=== PATIENT | male | born 1930 | race Caucasian/White ===

== ENCOUNTER 2018-04-21 10:55 | Day surgery (SDC) | payer MEDICARE, BC ==
[~2018-04-21] VITALS: Ht 185.4 cm; Wt 75.3 kg
[2018-04-21 11:57] LABS: INR 1.4 (0.8-3.0); POTASSIUM 4.3 mmol/L (3.4-5.0); PROTHROMBIN TIME 15.5 SECONDS (9.7-12.8)
[2018-04-21] MEDS ORDERED: CARDIZEM CD 12120 MG PO (12:18)
[2018-04-21] MEDS ORDERED: PROSCAR 5MG5 MG PO (12:19)
[2018-04-21] MEDS ORDERED: PRAVACHOL 40MG40 MG PO (12:20)
[2018-04-21] MEDS ORDERED: NITROSTAT0.4 MG/TAB SL (12:20)
[2018-04-21] MEDS ORDERED: ASPIRIN E.C. 8181 MG PO (12:21)
[2018-04-21] MEDS ORDERED: ELIQUIS 5MG PO (12:22)
[2018-04-21] MEDS ORDERED: MULTIPLE VITAMI1 CAP PO (12:24)
[2018-04-21 12:30] VITALS: BP 126/78; PULSE 68; TEMP 97
[2018-04-21 12:32] LABS: THYROID STIMULATING HORMONE 2.84 uIU/mL (0.465-4.680)
[2018-04-21 14:30] VITALS: BP 153/88; PULSE 71
== END 2018-04-21 14:45 | disposition home or self-care (01) ==
LOC: COL.CAR 10:55
PROVIDERS: Internal Medicine Interventional Cardiology
DX: I48.0 Paroxysmal atrial fibrillation (principal); I25.10 Atherosclerotic heart disease of native coronary artery without angina pectoris; I36.1 Nonrheumatic tricuspid (valve) insufficiency; I27.20 Pulmonary hypertension, unspecified; I50.32 Chronic diastolic (congestive) heart failure; R01.1 Cardiac murmur, unspecified; M79.604 Pain in right leg; M79.605 Pain in left leg; Z79.01 Long term (current) use of anticoagulants; Z79.82 Long term (current) use of aspirin; Z87.891 Personal history of nicotine dependence; Z88.8 Allergy status to other drugs, medicaments and biological substances; Z53.8 Procedure and treatment not carried out for other reasons
CPT/HCPCS: J2704; J7030

== ENCOUNTER → 2020-06-13 | Outpatient (CLI) | payer MEDICARE, BC ==
[~2020-06-13] MED LIST: ASPIRIN E.C. 8181 MG PO; CARDIZEM CD 12120 MG PO; ELIQUIS 5MG PO; MULTIPLE VITAMI1 CAP PO; NITROSTAT0.4 MG/TAB SL; PRAVACHOL 40MG40 MG PO; PROSCAR 5MG5 MG PO
== END ==
LOC: COL.LAB 09:01
DX: Z01.812 Encounter for preprocedural laboratory examination (principal); I36.1 Nonrheumatic tricuspid (valve) insufficiency; Z20.828 Contact with and (suspected) exposure to other viral communicable diseases

== ENCOUNTER 2020-07-22 11:33 | Outpatient (CLI) | payer MEDICARE, BC ==
[~2020-07-22] VITALS: Ht 185.5 cm; Wt 72.6 kg
[2020-07-22 12:47] LABS: HEMOGLOBIN 14.5 g/dl (13.5-18.0); MEAN CELL VOLUME 92 fl (80.0-100.0); MEAN CORPUSCULAR HEMOGLOBIN 31 pg (27.0-31.0); MEAN CORPUSCULAR HGB CONC 34 g/dl (33.0-37.0); PLATELET COUNT 140 K/mm3 (130-400); RED BLOOD COUNT 4.68 M/mm3 (4.20-5.60); REDCELL DISTRIBUTION WIDTH-CV 13.4 % (11.5-14.5)
[2020-07-22 12:50] LABS: INR 1.5 (0.8-3.0); PROTHROMBIN TIME 16.3 SECONDS (9.7-12.8)
[2020-07-22 12:54] LABS: CALCIUM 9.3 mg/dL (8.4-10.2); CREATININE, serum 1.17 (0.66-1.25); POTASSIUM 4.3 mmol/L (3.4-5.0)
[2020-07-22] MEDS ORDERED: PACERONE200 MG PO (13:24)
[2020-07-22 13:26] VITALS: BP 123/74; TEMP 98.2
[2020-07-22 14:00] VITALS: BP 128/77; PULSE 74
[2020-07-22 14:09] VITALS: BP 151/83; PULSE 74
[2020-07-22 14:15] VITALS: BP 153/90; PULSE 71
[2020-07-22 14:30] VITALS: BP 102/89; PULSE 72
[2020-07-22 14:45] VITALS: BP 149/83; PULSE 69
--- NOTE | 2020-07-22 15:20 | NUR ---
Discharge instructions given to pt.Pt verbalizes understanding.INT removed,catheter tip intact.Pt escorted out via wheelchair by this nurse.
== END 2020-07-22 15:44 | disposition home or self-care (01) ==
LOC: COL.RAD 11:33
PROVIDERS: Internal Medicine Interventional Cardiology
DX: I36.1 Nonrheumatic tricuspid (valve) insufficiency (principal)
CPT/HCPCS: J2704

== ENCOUNTER 2022-01-09 19:11 | Emergency (ER) | payer MEDICARE, BC ==
[~2022-01-09] VITALS: Ht 188 cm; Wt 75.9 kg
[~2022-01-09 19:11] MED LIST changes: +PACERONE200 MG PO
[2022-01-09 19:40] VITALS: TEMP 98.1
[2022-01-09 19:47] LABS: BASO % 0.4 % (0.0-2.0); EOS # 0.1 K/mm3 (0.0-0.7); EOS % 1.9 % (0.0-4.0); GRAN # 5.2 K/mm3 (1.4-6.5); GRAN % 73.9 % (42.2-75.2); HEMATOCRIT 44.4 % (42.0-52.0); HEMOGLOBIN 14.6 g/dl (13.5-18.0); LYMPH # 1.1 K/mm3 (1.2-3.4); LYMPH % 16.1 % (20.0-51.0); MEAN CELL VOLUME 91 fl (80.0-100.0); MEAN CORPUSCULAR HEMOGLOBIN 30 pg (27-31); MEAN CORPUSCULAR HGB CONC 33 g/dl (33.0-37.0); MEAN PLATELET VOLUME 8.9 fl (7.4-10.4); MONO # 0.5 K/mm3 (0.1-0.6); MONO % 7.6 % (1.7-9.3); PLATELET COUNT 160 K/mm3 (130-400); RED BLOOD COUNT 4.88 M/mm3 (4.20-5.60); REDCELL DISTRIBUTION WIDTH-CV 13.7 % (11.5-14.5)
[2022-01-09 21:57] VITALS: BP 146/104; PULSE 127
== END 2022-01-09 22:24 | disposition home or self-care (01) ==
LOC: COL.ER 19:11
PROVIDERS: Emergency Medicine
DX: R04.0 Epistaxis (principal); I48.91 Unspecified atrial fibrillation; Z79.01 Long term (current) use of anticoagulants